=== PATIENT | female | born 1970 | race Caucasian/White ===

== ENCOUNTER 2023-01-24 14:13 | Emergency (ER) | payer OTHER, SELFPAY ==
[2023-01-24 14:22] VITALS: BP 127/79; PULSE 111; RESP 16; TEMP 36.5; O2SAT 100
--- NOTE | 2023-01-24 15:06 | ED.FEMALEGU ---
HPI - Female Genitourinary General Chief complaint: Urogenital-Female Stated complaint: Urinary Problem Time Seen by Provider: 01/24/23 15:06 Source: patient, RN notes reviewed and old records reviewed Mode of arrival: ambulatory Limitations: no limitations History of Present Illness HPI Narrative: 52 year old female who presents to [facility] care with complaints of having some frequency and urgency of her urine and voiding in small amounts with some lower abdominal cramping and urethral pressure which started last night. Patient reports no fevers states some chills and some body aches, denies any blood noted in her urine or any back pain. Patient reports that she has taken some AZO for her symptoms with no improvement. Patient reports history of kidney stones 12 years ago and hysterectomy. Patient states concern since she is going out of town. MD elicited complaint: UTI Pertinent past history: hysterectomy and other (kidney stones) Onset (ago): day(s) (last evening) Location of symptoms: suprapubic and urethra Quality of pain: cramping and other (pressure) Vaginal discharge: none Vaginal bleeding: none Urinary symptoms: Urgency and Frequency Treatment prior to arrival: OTC urinary analgesics (AZO) Related Data Allergies Allergy/AdvReac Type Severity Reaction Status Date / Time No Known Allergies Allergy Verified 01/24/23 14:31 Review of Systems Review of Systems: CONSTITUTIONAL: Denies fever, states some chills and body aches CARDIOVASCULAR: Denies chest pain, palpitations, or edema. RESPIRATORY: Denies cough or dyspnea. GASTROINTESTINAL: Denies abdominal pain, nausea, vomiting, or diarrhea.states cramping pressure in lower abdomen and pressure to urethra GENITOURINARY: Reports no dysuria,positive for frequency, urgency. Denies flank pain or hematuria. SKIN: Denies rash or itching. MUSCULOSKELETAL: Denies back pain or myalgia. Denies CVA tenderness NEUROLOGIC: Denies headache All systems reviewed & are unremarkable except as noted in HPI and below PMFSH Past Medical History Medical History (Updated 01/26/23 @ 12:24 by Rosalee Frost NP) Kidney stones Surgical History Surgical History (Updated 01/26/23 @ 12:24 by Rosalee Frost NP) History of hysterectomy Social History Social History Smoking status: Never smoker Alcohol intake: current Alcohol use details: social Substance use type: does not use Living arrangements: with family Gender identity (if verbalized by the patient): Female Comments At time of signature, agree with nursing past medical, surgical, social and family history. There is no relevant family history pertinent to the presenting complaint Exam Narrative: GENERAL: Well-appearing, well-nourished, and in no acute distress. HEAD: Normocephalic, atraumatic. NECK: Supple.no lymphadenopathy CHEST: Clear to auscultation. No respiratory distress. HEART: Regular rate and rhythm. No murmur heard. Normal peripheral pulses. ABDOMEN: Soft, nontender to palpation nondistended, normal active bowel sounds. No CVA tenderness reports cramping to suprapubic area and some pressure to urethra, frequency and urgency of urination EXTREMITIES: Normal range of motion. No edema. SKIN: Warm, dry, no rash NEURO: No focal deficits. Alert and oriented x3. Course Course Emergency Course: Patient is aware of diagnosis, understands and agrees to treatment plan.? Anticipatory guidance given.? Patient agrees to follow-up as directed and is aware of reasons to seek care at the emergency department. Portions of this record may have been created with voice recognition software Level of Care: Express Care Visit Vital Signs Vital signs: Vital Signs Temperature 36.5 C 01/24/23 14:22 Pulse Rate 111 H 01/24/23 14:22 Respiratory Rate 16 01/24/23 14:22 Blood Pressure 127/79 01/24/23 14:22 Pulse Oximetry 100 01/24/23 14:22 Oxygen
== END 2023-01-24 15:22 | disposition home or self-care (01) ==
PROVIDERS: Emergency Provider Registered Nurse
DX: N39.0 Urinary tract infection, site not specified (principal); B95.1 Streptococcus, group B, as the cause of diseases classified elsewhere; Z87.442 Personal history of urinary calculi
CPT/HCPCS: 81003; 87077; 87086; 87088; 99213; G0463